=== PATIENT | female | born 1960 | race Caucasian/White ===

== ENCOUNTER 2019-01-20 11:03 | Emergency (ER) | payer BC, OTHER ==
[2019-01-20] MEDS ORDERED: Sodium Chloride 0.9% 10 ML Syringe FLUSH PRN (11:49)
--- NOTE | 2019-01-20 12:21 | EDM.PDOC ---
ED HPI GENERAL MEDICAL PROBLEM - General Chief Complaint: General Stated Complaint: CHEST DISCOMFORT,UPPER BODY DISCOMFORT Time Seen by Provider: 01/20/19 11:21 Source of Information: Reports: Patient, RN Notes Reviewed History Limitations: Reports: No Limitations - History of Present Illness INITIAL COMMENTS - FREE TEXT/NARRATIVE: Patient is a 58-year-old female who presents to the ED for multiple complaints. The patient notes that on Thursday she slipped and fell on the ice, and she has been having some pain between her shoulder blades, upper back pain, right-sided rib pain and jaw pain since then as well. She has been try to go to the chiropractor for this, but states it is more of a discomfort and not overly bothersome. Patient states that around 5 AM this worsened. She has been having some chest and burning feeling into her chest, she states she has had these pains in the past, but is never been this severe. She notes she has had a gallbladder removed around 7 years ago. She did not take any sort of pain medication for this like ibuprofen or Tylenol. She does note that her blood pressure was elevated as well during this time, roughly 180s systolically, she called the clinic for an appointment but they told her to come to the ER for evaluation. The patient denies any fevers or chills, cough, nausea/vomiting/ diarrhea, states that her last BM was this morning. She notes that she had a routine annual physical this summer, and was in good standings, and also did have a checkup with a cleaning associate in April with a good report. Patient notes she does take multiple herbal supplements, for which she has been taking for quite a few years, but also started taking the keto diet vitamins roughly 1 week ago as well. Upper Back Pain Score (Numeric/FACES): 6 - Related Data Allergies Allergy/AdvReac Type Severity Reaction Status Date / Time amoxicillin [From Augmentin] Allergy Rash Verified 01/20/19 11:15 clavulanic acid Allergy Rash Verified 01/20/19 11:15 [From Augmentin] morphine Allergy Shortness Verified 01/20/19 11:15 of Breath Home Meds: Home Meds atorvaSTATin [Lipitor] 0 mg PO BEDTIME 01/20/19 [History] hydroCHLOROthiazide [Hydrochlorothiazide] 0 mg PO DAILY 01/20/19 [History] Past Medical History HEENT History: Reports: Impaired Vision Cardiovascular History: Reports: Hypertension, Other (See Below) Other Cardiovascular History: Diastolic Dysfunction Respiratory History: Reports: Asthma, Bronchitis, Recurrent PHYSICAL THERAPY AIDE History: Reports: None Musculoskeletal History: Reports: None Neurological History: Reports: None Psychiatric History: Reports: None Endocrine/Metabolic History: Reports: Obesity/BMI 30+ Hematologic History: Reports: None Immunologic History: Reports: None Oncologic (Cancer) History: Reports: None Dermatologic History: Reports: None - Infectious Disease History Infectious Disease History: Reports: None - Past Surgical History HEENT Surgical History: Reports: Other (See Below) Other HEENT Surgeries/Procedures: Jaw Surgery GI Surgical History: Reports: Cholecystectomy Female Surgical History: Reports: Hysterectomy, Tubal Ligation Social & Family History - Tobacco Use Smoking Status *Q: Never Smoker - Caffeine Use Caffeine Use: Reports: Coffee - Recreational Drug Use Recreational Drug Use: No ED ROS GENERAL - Review of Systems Review Of Systems: See Below Constitutional: Denies: Fever, Chills HEENT: Reports: Other (jaw pain, hx/o TMJ). Denies: Rhinitis, Throat Pain Respiratory: Denies: Shortness of Breath, Cough Cardiovascular: Denies: Chest Pain GI/Abdominal: Reports: Abdominal Pain (RUQ/R lower rib pain). Denies: Constipation, Diarrhea, Nausea, Vomiting : Denies: Dysuria, Frequency Musculoskeletal: Reports: Back Pain (mid back). Denies: Neck Pain Skin: Denies: Bruising Neurological: Denies: Numbness, Tingling Psychiatric: Reports: Anxiety (pt reports anxiety d/t job stress) ED EXAM, GENERAL - Physical Exam Exam: See Below Exam Limited By: No Limitations General Appearance: Alert, WD/WN, No Apparent Distress Eye Exam: Bilateral Eye: EOMI, Normal Inspection, PERRL Ears: Normal External Exam, Normal Canal, Hearing Grossly Normal, Normal TMs Nose: Normal Inspection Throat/Mouth: Normal Inspection, Normal Lips, Normal Teeth, Normal Gums, Normal Oropharynx, Normal Voice, No Airway Compromise Head: Atraumatic, Normocephalic Neck: Normal Inspection, Supple, Non-Tender, Full Range of Motion Respiratory/Chest: No Respiratory Distress, Lungs Clear, Normal Breath Sounds, No Accessory Muscle Use, Chest Non-Tender Cardiovascular: Normal Peripheral Pulses, Regular Rate, Rhythm, No Edema, No Murmur Peripheral Pulses: 3+: Radial (L), Radial (R) GI/Abdominal: Normal Bowel Sounds, Soft, Non-Tender, No Distention, No Mass Back Exam: Normal Inspection, Full Range of Motion Extremities: Normal Inspection, Normal Range of Motion, Normal Capillary Refill Neurological: Alert, Oriented, Normal Cognition, No Motor/Sensory Deficits Psychiatric: Normal Affect, Normal Mood Skin Exam: Warm, Dry, Intact, Normal Color, No Rash EKG INTERPRETATION EKG Date: 01/20/19 Time: 12:24 Rhythm: NSR Rate (Beats/Min): 64 [place]: Normal P-Wave: Present QRS: Normal ST-T: Normal QT: Normal EKG Interpretation Comments: Reviewed by myself and Dr. Lubin, no acute ischemic changes noted. Course - Vital Signs Last Recorded V/S: Last Vital Signs Temp 96.9 F 01/20/19 11:10 Pulse 69 01/20/19 11:10 Resp 16 01/20/19 11:10 BP 180/77 H 01/20/19 11:10 Pulse Ox 99 01/20/19 11:10 - Orders/Labs/Meds Orders: Active Orders 24 hr Category Date Time Status EKG Documentation Completion [RC] STAT Care 01/20/19 11:49 Active Peripheral IV Care [RC] . DIRECTED Care 01/20/19 11:50 Active Chest 2V [CR] Stat Exams 01/20/19 11:49 Taken Sodium Chloride 0.9% [Saline Flush] Med 01/20/19 11:49 Active 10 ml FLUSH ASDIRECTED PRN Peripheral IV Insertion Adult [OM.PC] Stat Oth 01/20/19 11:49 Ordered Medication Orders Sodium Chloride (Saline Flush) 10 ml FLUSH ASDIRECTED PRN PRN Reason: Keep Vein Open Last Admin: 01/20/19 12:20 Dose: 10 ml Labs: Laboratory Tests 01/20/19 01/20/19 01/20/19 Range/Units 12:20 12:20 12:20 WBC 7.69 (3.98-10.04) K/mm3 RBC 4.81 (3.98-5.22) M/mm3 Hgb 14.2 (11.2-15.7) gm/dl Hct 41.6 (34.1-44.9) % MCV 86.5 (79.4-94.8) fl MCH 29.5 (25.6-32.2) pg MCHC 34.1 (32.2-35.5) g/dl RDW Std Deviation 42.1 (36.4-46.3) fL Plt Count 273 (182-369) K/mm3 MPV 9.5 (9.4-12.3) fl Neutrophils % (Manual) 67 H (40-60) % Band Neutrophils % 0 (0-10) % Lymphocytes % (Manual) 28 (20-40) % Atypical Lymphs % 0 % Monocytes % (Manual) 1 L (2-10) % Eosinophils % (Manual) 4 (0.7-5.8) % Basophils % (Manual) 0 L (0.1-1.2) Platelet Estimate Adequate RBC Morph Comment Normal PT 10.8 (9.7-12.0) SECONDS INR 0.99 APTT 27 (22-31) SECONDS Sodium 140 (136-145) mEq/L Potassium 3.4 L (3.5-5.1) mEq/L Chloride 103 (98-107) mEq/L Carbon Dioxide 28 (21-32) mEq/L Anion Gap 12.4 (5-15) BUN 20 H (7-18) mg/dL Creatinine 0.8 (0.55-1.02) mg/dL Est Cr Clr Drug Dosing 78.15 mL/min Estimated GFR (MDRD) > 60 (>60) mL/min BUN/Creatinine Ratio 25.0 H (14-18) Glucose 98 (74-106) mg/dL Calcium 9.6 (8.5-10.1) mg/dL Magnesium 2.1 (1.8-2.4) mg/dl Total Bilirubin 0.7 (0.2-1.0) mg/dL AST 24 (15-37) U/L ALT 58 (14-59) U/L Alkaline Phosphatase 136 H (46-116) U/L Troponin I < 0.017 (0.00-0.056) ng/mL NT-Pro-B Natriuret Pep (0-125) pg/mL Total Protein 7.6 (6.4-8.2) g/dl Albumin 4.2 (3.4-5.0) g/dl Globulin 3.4 gm/dL Albumin/Globulin Ratio 1.2 (1-2) 01/20/19 Range/Units 12:20 WBC (3.98-10.04) K/mm3 RBC (3.98-5.22) M/mm3 Hgb (11.2-15.7) gm/dl Hct (34.1-44.9) % MCV (79.4-94.8) fl MCH (25.6-32.2) pg MCHC (32.2-35.5) g/dl RDW Std Deviation (36.4-46.3) fL Plt Count (182-369) K/mm3 MPV (9.4-12.3) fl Neutrophils % (Manual) (40-60) % Band Neutrophils % (0-10) % Lymphocytes % (Manual) (20-40) % Atypical Lymphs % % Monocytes % (Manual) (2-10) % Eosinophils % (Manual) (0.7-5.8) % Basophils % (Manual) (0.1-1.2) Platelet Estimate RBC Morph Comment PT (9.7-12.0) SECONDS INR APTT (22-31) SECONDS Sodium (136-145) mEq/L Potassium (3.5-5.1) mEq/L Chloride (98-107) mEq/L Carbon Dioxide (21-32) mEq/L Anion Gap (5-15) BUN (7-18) mg/dL Creatinine (0.55-1.02) mg/dL Est Cr Clr Drug Dosing mL/min Estimated GFR (MDRD) (>60) mL/min BUN/Creatinine Ratio (14-18) Glucose (74-106) mg/dL Calcium (8.5-10.1) mg/dL Magnesium (1.8-2.4) mg/dl Total Bilirubin (0.2-1.0) mg/dL AST (15-37) U/L ALT (14-59) U/L Alkaline Phosphatase (46-116) U/L Troponin I (0.00-0.056) ng/mL NT-Pro-B Natriuret Pep 84 (0-125) pg/mL Total Protein (6.4-8.2) g/dl Albumin (3.4-5.0) g/dl Globulin gm/dL Albumin/Globulin Ratio (1-2) Meds: Medications Generic Name Dose Route Start Last Admin Trade Name Freq PRN Reason Stop Dose Admin Sodium Chloride 10 ml 01/20/19 11:49 01/20/19 12:20 Saline Flush FLUSH 10 ml ASDIRECTED PRN Administration Keep Vein Open - Re-Assessments/Exams Free Text/Narrative Re-Assessment/Exam: 01/20/19 12:24 Patient presents to the ED for the evaluation of multiple complaints. Due to the reports of her blood pressure being high, and generalized chest discomfort I will get some labs, do an EKG and a chest x-ray for further evaluation. Patient has not complaining of a pain, but more of a discomfort, and is not requesting any sort of pain medication be given at this time. 01/20/19 13:51 Abs are done and demonstrate no focal abnormalities. EKG was also within normal limits, chest x-ray appears to be within normal limits, official radiology read is pending at this time. It appears that the patient may have some musculoskeletal strain due to her recent slip and fall on Thursday, will discharge home with general recommendations have her follow-up with her regular care provider if needed. Departure - Departure Time of Disposition: 13:53 Disposition: Home, Self-Care 01 Condition: Fair Clinical Impression: Chest wall discomfort, Elevated blood pressure reading in office with diagnosis of hypertension - Discharge Information *PRESCRIPTION DRUG MONITORING PROGRAM REVIEWED*: No *COPY OF PRESCRIPTION DRUG MONITORING REPORT IN PATIENT HENRY: No Instructions: DASH Eating Plan, Chest Wall Pain Referrals: Adri Kang PA-C [Primary Care Provider] - Forms: ED Department Discharge Additional Instructions: You were evaluated in the ER today regarding your generalized chest discomfort and upper body discomfort. Your EKG was within normal limits, chest x-ray was within normal limits, and your laboratory evaluation was also within normal limits. Your pain may most likely be due to musculoskeletal strain, as you reported you fell on Thursday onto your back. Recommend you try Tylenol 500 mg or ibuprofen 600 mg every 6 hours as needed for further pain relief, do not exceed 4000 mg Tylenol or 3200 mg ibuprofen in a 24-hour time span. Her blood pressure did seem to come down in the ER, during your stay, there was no need to have any emergent treatment of elevated blood pressure reading. Recommend you follow-up with your primary care provider to see if they would want to change any sort of medications around regarding your blood pressure. It is likely that you may have been under a little bit of stress as well, as you reported your job has been quite stressful. You may also want to talk with your primary care provider regarding this. Please return to the ER if your symptoms change or worsen. - My Orders Last 24 Hours: My Active Orders 01/20/19 11:49 EKG Documentation Completion [RC] STAT Chest 2V [CR] Stat Sodium Chloride 0.9% [Saline Flush] 10 ml FLUSH ASDIRECTED PRN Peripheral IV Insertion Adult [OM.PC] Stat 01/20/19 11:50 Peripheral IV Care [RC] . DIRECTED - Assessment/Plan Last 24 Hours: My Active Orders 01/20/19 11:49 EKG Documentation Completion [RC] STAT Chest 2V [CR] Stat Sodium Chloride 0.9% [Saline Flush] 10 ml FLUSH ASDIRECTED PRN Peripheral IV Insertion Adult [OM.PC] Stat 01/20/19 11:50 Peripheral IV Care [RC] . DIRECTED
--- NOTE | 2019-01-21 09:41 | CR ---
Chest: Two views of the chest were obtained. Comparison: No prior chest x-ray. Heart size and mediastinum are normal. Lungs are clear. Bony structures appear within normal limits for the patient's age. Impression: 1. Nothing acute is seen on two-view chest x-ray. Diagnostic code #1 This report was dictated in [place] Standard Time
== END 2019-01-20 14:20 | disposition home or self-care (01) ==
LOC: JD.ED 11:03
DX: R07.89 Other chest pain (principal); I10 Essential (primary) hypertension; E66.9 Obesity, unspecified; Z79.899 Other long term (current) drug therapy; Z88.5 Allergy status to narcotic agent; Z88.1 Allergy status to other antibiotic agents; W00.0XXA Fall on same level due to ice and snow, initial encounter
CPT/HCPCS: 36415; 71046; 71046-26; 80053; 83735; 83880; 84484; 85007; 85027; 85610; 85730; 93005; 93010; 99284; 99285-25

== ENCOUNTER 2020-02-02 08:42 | Emergency (ER) | payer BC ==
--- NOTE | 2020-02-02 09:19 | EDM.PDOC ---
ED HPI GENERAL MEDICAL PROBLEM - General Chief Complaint: Cardiovascular Problem Stated Complaint: CHEST PAIN/JAW PAIN /HIGH BLOOD PRESSURE Time Seen by Provider: 02/02/20 09:03 Source of Information: Reports: Patient History Limitations: Reports: No Limitations - History of Present Illness INITIAL COMMENTS - FREE TEXT/NARRATIVE: 59-year-old female with complaints of elevated blood pressure and chest pain. She states that yesterday she checked her blood pressure and it was elevated up to 170 systolic. She states she went home early and relaxed and then felt better. Today she states she had a headache so she checked her blood pressure at that time and felt it was elevated again and then developed right-sided chest pain with radiation up to her right jaw. She states this pain is similar to the pain that she had prior to having her gallbladder removed. She states she had this removed about 8 years ago. She does have a history of hypertension for which she takes hydrochlorothiazide and high cholesterol. She does state that she has got a significant amount of stress right now as she has started a second job and is stressed out dealing with the holidays. Right Chest Pain Score (Numeric/FACES): 6 - Related Data Allergies Allergy/AdvReac Type Severity Reaction Status Date / Time amoxicillin [From Augmentin] Allergy Mild Rash Verified 02/02/20 08:50 clavulanic acid Allergy Mild Rash Verified 02/02/20 08:50 [From Augmentin] morphine Allergy Shortness Verified 02/02/20 08:50 of Breath Home Meds: Home Meds atorvaSTATin [Lipitor] 0 mg PO BEDTIME 01/20/19 [History] hydroCHLOROthiazide [Hydrochlorothiazide] 0 mg PO DAILY 01/20/19 [History] Aspirin 81 mg PO DAILY 02/02/20 [History] Cholecalciferol (Vitamin D3) [Vitamin D] 5,000 unit PO DAILY 02/02/20 [History] Ganoderma 1 tab PO DAILY 02/02/20 [History] Zinc 50 mg PO DAILY 02/02/20 [History] Past Medical History HEENT History: Reports: Impaired Vision Cardiovascular History: Reports: Hypertension, Other (See Below) Other Cardiovascular History: Diastolic Dysfunction Respiratory History: Reports: Asthma, Bronchitis, Recurrent Gastrointestinal History: Reports: Cholelithiasis Genitourinary History: Reports: None CAPACITY PLANNING ANALYST History: Reports: None Musculoskeletal History: Reports: None Neurological History: Reports: None Psychiatric History: Reports: None Endocrine/Metabolic History: Reports: Obesity/BMI 30+ Hematologic History: Reports: None Immunologic History: Reports: None Oncologic (Cancer) History: Reports: None Dermatologic History: Reports: None - Infectious Disease History Infectious Disease History: Reports: Chicken Pox, Measles, Mumps - Past Surgical History Head Surgeries/Procedures: Reports: None HEENT Surgical History: Reports: Other (See Below) Other HEENT Surgeries/Procedures: Jaw Surgery GI Surgical History: Reports: Cholecystectomy Female Surgical History: Reports: Hysterectomy, Tubal Ligation Social & Family History - Family History Family Medical History: No Pertinent Family History Cardiac: Reports: CAD, Heart Failure, [place] - Tobacco Use Tobacco Use Status *Q: Never Tobacco User - Caffeine Use Caffeine Use: Reports: Coffee, Tea - Recreational Drug Use Recreational Drug Use: No ED ROS GENERAL - Review of Systems Review Of Systems: See Below Constitutional: Reports: No Symptoms HEENT: Reports: No Symptoms Respiratory: Reports: No Symptoms. Denies: Shortness of Breath, Pleuritic Chest Pain, Cough Cardiovascular: Reports: Chest Pain (Right-sided with radiation to right jaw.), Blood Pressure Problem (Hypertension), Palpitations. Denies: Edema, Lightheadedness, Syncope Endocrine: Reports: No Symptoms GI/Abdominal: Reports: No Symptoms : Reports: No Symptoms Musculoskeletal: Reports: No Symptoms Skin: Reports: No Symptoms Neurological: Reports: No Symptoms Psychiatric: Reports: No Symptoms Hematologic/Lymphatic: Reports: No Symptoms Immunologic: Reports: No Symptoms ED EXAM, GENERAL - Physical Exam Exam: See Below Exam Limited By: No Limitations General Appearance: Alert, WD/WN, No Apparent Distress Eye Exam: Bilateral Eye: PERRL Ears: Normal External Exam, Hearing Grossly Normal Nose: Normal Inspection Throat/Mouth: Normal Inspection, Normal Lips, Normal Voice, No Airway Compromise Head: Atraumatic, Normocephalic Neck: Normal Inspection, Supple, Non-Tender, Full Range of Motion Respiratory/Chest: No Respiratory Distress, Lungs Clear, Normal Breath Sounds, No Accessory Muscle Use, Chest Non-Tender Cardiovascular: Normal Peripheral Pulses, Regular Rate, Rhythm, No Edema, No Murmur Peripheral Pulses: 2+: Radial (L), Radial (R), Dorsalis Pedis (L), Dorsalis Pedis (R) GI/Abdominal: Normal Bowel Sounds, Soft, Non-Tender, No Distention (Female) Exam: Deferred Rectal (Female) Exam: Deferred Back Exam: Normal Inspection, Full Range of Motion Extremities: Normal Inspection, Normal Range of Motion, Non-Tender, No Pedal Edema, Normal Capillary Refill Neurological: Alert, Oriented, Normal Cognition Psychiatric: Normal Affect, Normal Mood Skin Exam: Warm, Dry, Intact, Normal Color, No Rash Lymphatic: No Adenopathy #1 Interpretation EKG Date: 02/02/20 Time: 08:51 Rhythm: NSR Rate (Beats/Min): 65 [place]: Normal P-Wave: Present QRS: Normal ST-T: Normal QT: Normal EKG Interpretation Comments: Per Dr. Campos interpretation: Sinus rhythm at 65, T wave flattening in aVF and lead II are nonspecific. Course - Vital Signs Last Recorded V/S: Last Vital Signs Temp 97.6 F 02/02/20 08:55 Pulse 67 02/02/20 08:55 Resp 21 H 02/02/20 08:55 BP 165/90 H 02/02/20 08:55 Pulse Ox 96 02/02/20 08:55 - Orders/Labs/Meds Orders: Active Orders 24 hr Category Date Time Status EKG 12 Lead [EKG Documentation Completion] [RC] STAT Care 02/02/20 09:07 Active Labs: Laboratory Tests 02/02/20 02/02/20 02/02/20 Range/Units 08:58 08:58 08:58 WBC 6.90 (3.98-10.04) K/mm3 RBC 4.85 (3.98-5.22) M/mm3 Hgb 14.0 (11.2-15.7) gm/dl Hct 42.8 (34.1-44.9) % MCV 88.2 (79.4-94.8) fl MCH 28.9 (25.6-32.2) pg MCHC 32.7 (32.2-35.5) g/dl RDW Std Deviation 43.1 (36.4-46.3) fL Plt Count 265 (182-369) K/mm3 MPV 9.4 (9.4-12.3) fl Neut % (Auto) 68.6 (34.0-71.1) % Lymph % (Auto) 17.7 L (19.3-51.7) % [place] % (Auto) 9.7 (4.7-12.5) % Eos % (Auto) 3.0 (0.7-5.8) Baso % (Auto) 0.9 (0.1-1.2) % Neut # (Auto) 4.73 (1.56-6.13) K/mm3 Lymph # (Auto) 1.22 (1.18-3.74) K/mm3 [place] # (Auto) 0.67 H (0.24-0.36) K/mm3 Eos # (Auto) 0.21 (0.04-0.36) K/mm3 Baso # (Auto) 0.06 (0.01-0.08) K/mm3 Sodium 138 (136-145) mEq/L Potassium 3.7 (3.5-5.1) mEq/L Chloride 103 (98-107) mEq/L Carbon Dioxide 25 (21-32) mEq/L Anion Gap 13.7 (5-15) BUN 19 H (7-18) mg/dL Creatinine 0.9 (0.55-1.02) mg/dL Est Cr Clr Drug Dosing 66.22 mL/min Estimated GFR (MDRD) > 60 (>60) mL/min BUN/Creatinine Ratio 21.1 H (14-18) Glucose 112 (80-115) mg/dL Calcium 9.8 (8.5-10.1) mg/dL Total Bilirubin 0.8 (0.2-1.0) mg/dL AST 50 H (15-37) U/L ALT 75 H (14-59) U/L Alkaline Phosphatase 126 H (46-116) U/L Troponin I < 0.017 (0.00-0.056) ng/mL Total Protein 7.5 (6.4-8.2) g/dl Albumin 3.9 (3.4-5.0) g/dl Globulin 3.6 gm/dL Albumin/Globulin Ratio 1.1 (1-2) Lipase 71 L (73-393) U/L - Re-Assessments/Exams Free Text/Narrative Re-Assessment/Exam: 02/02/20 10:10 CBC is unremarkable. CMP reveals AST of 50 ALT is 75 alk phos 126, troponin less than 0.017, lipase 71. After further investigation the patient states that her liver enzymes have been slightly elevated for quite some time. She states she did have an ultrasound of her liver last year in her primary care physician, Adri Hutchinson, is aware and is monitoring. Nothing acute is seen on portable chest x-ray. Chest pain is not cardiac in origin. Again patient is under a fair amount of stress. Patient does not want to be placed on any kind of antianxiety medications at this time. Recommend she follow-up with her primary care rusty warrenian within the next week. Departure - Departure Time of Disposition: 10:12 Disposition: Home, Self-Care 01 Condition: Good Clinical Impression: Atypical chest pain Instructions: Nonspecific Chest Pain, Adult, [id number] Referrals: Adri Kang PA-C [Primary Care Provider] - Forms: ED Department Discharge Additional Instructions: Were seen in the emergency department today with complaints of right-sided chest pain and elevated blood pressure. Your chest x-ray and electrocardiogram were normal. Lab work reveals elevated liver enzymes which your primary physician is aware of and following. Recommend you start using stress relieving measures, exercising etc. Follow-up with your primary care provider in about a week. Kathryn uld your condition worsen or change please return to the emergency department Sepsis Event Note (ED) - Evaluation Sepsis Screening Result: No Definite Risk - Focused Exam Vital Signs: Vital Signs Temp Pulse Resp BP Pulse Ox 02/02/20 08:55 97.6 F 67 21 H 165/90 H 96 - My Orders Last 24 Hours: My Active Orders 02/02/20 09:07 EKG 12 Lead [EKG Documentation Completion] [RC] STAT - Assessment/Plan Last 24 Hours: My Active Orders 02/02/20 09:07 EKG 12 Lead [EKG Documentation Completion] [RC] STAT
--- NOTE | 2020-02-02 09:46 | CR ---
Chest: Portable view of the chest was obtained. Comparison: Prior chest x-ray of 12/21/18. Heart size and mediastinum are normal. Lungs are clear with no acute parenchymal change. No discrete acute bony abnormality is appreciated. Impression: 1. Nothing acute seen on portable chest x-ray. Diagnostic code #1
== END 2020-02-02 10:42 | disposition home or self-care (01) ==
LOC: JD.ED 08:42
DX: R07.89 Other chest pain (principal); I10 Essential (primary) hypertension; J45.909 Unspecified asthma, uncomplicated; E66.9 Obesity, unspecified; Z68.32 Body mass index [BMI] 32.0-32.9, adult; Z79.899 Other long term (current) drug therapy; Z88.1 Allergy status to other antibiotic agents; Z88.5 Allergy status to narcotic agent; Z79.82 Long term (current) use of aspirin
CPT/HCPCS: 36415; 71045; 71045-26; 80053; 83690; 84484; 85025; 93005; 93010; 99283; 99285-25